=== PATIENT | male | born 1930 | race Caucasian/White ===

== ENCOUNTER 2017-08-09 10:27 | Emergency (ER) | payer OTHER ==
[~2017-08-09] VITALS: Ht 175.3 cm; Wt 76.8 kg
[~2017-08-09 10:27] MED LIST: ASPIRIN325 MG PO; BICALUTAMIDE50 M1 PO; COLACE100 MG PO; PRILOSEC20 MG PO; QUINAPRIL HCL20 MG PO; ZETIA10 MG PO; [UNRECOGNIZED DRUG - REMARK] SC
[2017-08-09 11:33] LABS: BASOPHIL (%) 0.6 % (0-1); EOSINOPHIL (%) 2.3 % (0-5); EOSINOPHIL COUNT 0.1 K/uL (0-0.3); HEMATOCRIT 37.4 % (38.0-50.0); HEMOGLOBIN 12.6 G/DL (12.5-16.6); IMMATURE GRANULOCYTE (%) 0.2 % (0.0-0.7); LYMPHOCYTE (%) 28.4 % (15-42); LYMPHOCYTE COUNT 1.4 K/uL (1.0-2.8); MCHC 33.7 G/DL (30.0-36.0); MCV 94.9 FL (86-99); MONOCYTE (%) 10.7 % (3-12); MONOCYTE COUNT 0.5 K/uL (0-0.8); NEUTROPHIL (%) 57.8 % (45-76); NEUTROPHIL COUNT 2.8 K/uL (1.8-6.4); PLATELET COUNT 168 K/uL (156-360); RBC DIS.WIDTH-SD 48.4 % (39-53); RED BLOOD COUNT 3.94 M/uL (4.00-5.50); WHITE BLOOD COUNT 4.8 K/uL (4.1-10.2)
[2017-08-09 11:42] LABS: ALBUMIN 3.8 g/dL (3.2-4.8); CHLORIDE 110 mEq/L (99-109); POTASSIUM 4.1 mEq/L (3.7-5.4); SODIUM 144 mEq/L (136-147)
[2017-08-09 11:44] LABS: GLUCOSE 105 mg/dL (70-99); TOTAL PROTEIN 6.5 g/dL (6.4-8.3)
[2017-08-09 11:46] LABS: TOTAL BILIRUBIN 0.7 mg/dL (0.0-1.0)
[2017-08-09 11:48] LABS: ALKALINE PHOSPHATASE 61 IU/L (3-129); GFR ESTIMATE (CALCULATED) > 59 mL/min/ (58.99-99999)
[2017-08-09 11:49] LABS: UREA NITROGEN (BUN) 20 mg/dL (9-23)
[2017-08-09 11:50] LABS: AST (GOT) 27 IU/L (2-34)
[2017-08-09 11:51] LABS: ALT (GPT) 26 IU/L (3-49)
[2017-08-09 13:18] LABS: APPEARANCE CLEAR ((CLEAR)); BILIRUBIN NEGATIVE; BLOOD NEGATIVE; COLOR YELLOW ((YELLOW)); GLUCOSE (STRIP) NEGATIVE; KETONES NEGATIVE; LEUKOCYTES NEGATIVE; NITRITE NEGATIVE; PROTEIN (STRIP) NEGATIVE; SPECIFIC GRAVITY 1.023 (1.000-1.030); UCUL ADDED? NO; UROBILINOGEN 0.2 MG/DL (0.2-1.0)
[2017-08-09] MEDS ORDERED: URIBEL CAPSULE1 EACH PO (14:03)
[2017-08-09] MEDS ORDERED: NORCO 5/3251 TABLET PO (14:03)
[2017-08-09 14:37] VITALS: BP 152/84
== END 2017-08-09 14:37 | disposition home or self-care (01) ==
LOC: EME 10:27
PROVIDERS: Emergency Medicine
DX: R30.0 Dysuria (principal); N32.89 Other specified disorders of bladder; I10 Essential (primary) hypertension; K21.9 Gastro-esophageal reflux disease without esophagitis; I25.2 Old myocardial infarction; Z95.5 Presence of coronary angioplasty implant and graft; Z95.1 Presence of aortocoronary bypass graft; Z85.46 Personal history of malignant neoplasm of prostate; Z87.891 Personal history of nicotine dependence; Z79.82 Long term (current) use of aspirin; Z88.7 Allergy status to serum and vaccine; Z88.8 Allergy status to other drugs, medicaments and biological substances; Z91.040 Latex allergy status
CPT/HCPCS: 74177; 80053; 81003; 83880; 85025; 99281; 99284

== ENCOUNTER 2017-08-28 19:53 | Emergency (ER) | payer OTHER ==
[~2017-08-28] VITALS: Ht 175.3 cm; Wt 75.3 kg
[~2017-08-28 19:53] MED LIST changes: +NORCO 5/3251 TABLET PO; +URIBEL CAPSULE1 EACH PO
[2017-08-28 20:44] LABS: APPEARANCE SL.HAZY ((CLEAR)); BILIRUBIN NEGATIVE; BLOOD MODERATE; COLOR YELLOW ((YELLOW)); GLUCOSE (STRIP) NEGATIVE; KETONES NEGATIVE; LEUKOCYTES TRACE; NITRITE NEGATIVE; PROTEIN (STRIP) 30; SPECIFIC GRAVITY 1.014 (1.000-1.030); UROBILINOGEN 0.2 MG/DL (0.2-1.0)
[2017-08-28 20:44] LABS: HEMATOCRIT 37.5 % (38.0-50.0); HEMOGLOBIN 13.2 G/DL (12.5-16.6); MCH 32.8 PG (29.0-34.0); MCHC 35.2 G/DL (30.0-36.0); MCV 93.1 FL (86-99); PLATELET COUNT 192 K/uL (156-360); RBC DIS.WIDTH-CV 13.2 % (11.8-14.6); RBC DIS.WIDTH-SD 45.6 % (39-53); RED BLOOD COUNT 4.03 M/uL (4.00-5.50); WHITE BLOOD COUNT 5.9 K/uL (4.1-10.2)
[2017-08-28 21:04] LABS: BACTERIA RARE /HPF; EPITHELIAL CELLS RARE /HPF; MUCUS TRACE /LPF; RED BLOOD CELLS 20-30 /HPF (0-5)
[2017-08-28 21:13] LABS: CHLORIDE 108 mEq/L (99-109); SODIUM 139 mEq/L (136-147)
[2017-08-28 21:14] LABS: GLUCOSE 103 mg/dL (70-99)
[2017-08-28 21:18] LABS: CREATININE 1.2 mg/dL (0.6-1.3); GFR ESTIMATE (CALCULATED) > 59 mL/min/ (58.99-99999)
[2017-08-28 21:19] LABS: UREA NITROGEN (BUN) 30 mg/dL (9-23)
[2017-08-28] MEDS ORDERED: CIPRO500 MG PO (21:55)
[2017-08-28 22:30] VITALS: BP 101/70
[2017-08-31] MEDS ORDERED: ADULT ASPIRIN R81 MG PO (17:45)
[2017-08-31] MEDS ORDERED: NEXIUM40 MG PO (17:47)
[2017-08-31] MEDS ORDERED: LISINOPRIL5 MG PO (17:47)
== END 2017-08-28 22:35 | disposition home or self-care (01) ==
LOC: EME → EDBD 19:53 → EME 19:53
PROVIDERS: Emergency Medicine
PROC: 0T9B70Z Drainage of Bladder with Drainage Device, Via Natural or Artificial Opening (ICD-10-PCS; principal; 2017-08-28)
DX: N39.0 Urinary tract infection, site not specified (principal); R33.9 Retention of urine, unspecified; I10 Essential (primary) hypertension; K21.9 Gastro-esophageal reflux disease without esophagitis; Z85.46 Personal history of malignant neoplasm of prostate; I25.2 Old myocardial infarction; Z95.5 Presence of coronary angioplasty implant and graft; Z95.1 Presence of aortocoronary bypass graft; Z87.891 Personal history of nicotine dependence; Z79.82 Long term (current) use of aspirin
CPT/HCPCS: 80048; 81003; 85027; 87086; 99281; 99284

== ENCOUNTER 2017-08-31 19:33 | Emergency (ER) | payer OTHER ==
[~2017-08-31] VITALS: Ht 175.3 cm; Wt 75.9 kg
[~2017-08-31 19:33] MED LIST changes: +ADULT ASPIRIN R81 MG PO; +CIPRO500 MG PO; +LISINOPRIL5 MG PO; +NEXIUM40 MG PO
[2017-08-31] MEDS ORDERED: PYRIDIUM100 MG PO (20:35)
[2017-08-31 21:08] VITALS: BP 155/100
== END 2017-08-31 21:08 | disposition home or self-care (01) ==
LOC: EME 19:33
PROC: 0T9B70Z Drainage of Bladder with Drainage Device, Via Natural or Artificial Opening (ICD-10-PCS; principal; 2017-08-31)
DX: R33.9 Retention of urine, unspecified (principal); Z85.51 Personal history of malignant neoplasm of bladder; Z85.46 Personal history of malignant neoplasm of prostate; I10 Essential (primary) hypertension; I25.2 Old myocardial infarction; K21.9 Gastro-esophageal reflux disease without esophagitis; Z95.1 Presence of aortocoronary bypass graft; Z95.5 Presence of coronary angioplasty implant and graft; Z79.82 Long term (current) use of aspirin; Z87.891 Personal history of nicotine dependence
CPT/HCPCS: 99281; 99284

== ENCOUNTER 2017-11-15 20:54 | Emergency (ER) | payer OTHER ==
[~2017-11-15] VITALS: Ht 180.3 cm; Wt 77.2 kg
[~2017-11-15 20:54] MED LIST changes: +PYRIDIUM100 MG PO
[2017-11-15 21:38] LABS: APPEARANCE CLEAR ((CLEAR)); BILIRUBIN NEGATIVE; BLOOD MODERATE; COLOR YELLOW ((YELLOW)); GLUCOSE (STRIP) NEGATIVE; KETONES NEGATIVE; LEUKOCYTES MODERATE; NITRITE NEGATIVE; PROTEIN (STRIP) 30; SPECIFIC GRAVITY 1.012 (1.000-1.030); UROBILINOGEN 0.2 MG/DL (0.2-1.0)
[2017-11-15 21:47] LABS: BACTERIA RARE /HPF; EPITHELIAL CELLS NONE SEEN /HPF; HYALINE CASTS 0-5 /LPF; MUCUS TRACE /LPF; RED BLOOD CELLS TNTC /HPF (0-5); UCUL ADDED? YES; WHITE BLOOD CELLS 40-50 /HPF (0-5)
[2017-11-15 21:55] LABS: BASOPHIL (%) 0.5 % (0-1); BASOPHIL COUNT 0.1 K/uL (0-0.1); EOSINOPHIL COUNT 0.2 K/uL (0-0.3); HEMATOCRIT 39.9 % (38.0-50.0); HEMOGLOBIN 13.6 G/DL (12.5-16.6); IMMATURE GRANULOCYTE (%) 0.7 % (0.0-0.7); LYMPHOCYTE (%) 11.6 % (15-42); LYMPHOCYTE COUNT 1.2 K/uL (1.0-2.8); MCH 32.7 PG (29.0-34.0); MCHC 34.1 G/DL (30.0-36.0); MCV 95.9 FL (86-99); MONOCYTE COUNT 0.8 K/uL (0-0.8); NEUTROPHIL (%) 77.2 % (45-76); PLATELET COUNT 183 K/uL (156-360); RBC DIS.WIDTH-CV 12.5 % (11.8-14.6); RBC DIS.WIDTH-SD 43.9 % (39-53); RED BLOOD COUNT 4.16 M/uL (4.00-5.50); WHITE BLOOD COUNT 10.4 K/uL (4.1-10.2)
[2017-11-15 22:04] LABS: CHLORIDE 108 mEq/L (99-109); POTASSIUM 4.2 mEq/L (3.7-5.4); SODIUM 138 mEq/L (136-147)
[2017-11-15 22:05] LABS: GLUCOSE 122 mg/dL (70-99)
[2017-11-15 22:09] LABS: CREATININE 1.2 mg/dL (0.6-1.3); GFR ESTIMATE (CALCULATED) > 59 mL/min/ (58.99-99999)
[2017-11-15 22:10] LABS: UREA NITROGEN (BUN) 37 mg/dL (9-23)
[2017-11-16] MEDS ORDERED: KEFLEX500 MG PO (00:12)
[2017-11-16] MEDS ORDERED: PYRIDIUM100 MG PO ×2 (00:12→00:33)
[2017-11-16 01:05] VITALS: BP 109/77
== END 2017-11-16 01:06 | disposition home or self-care (01) ==
LOC: EME 20:54
PROVIDERS: Emergency Medicine
PROC: 0T9B70Z Drainage of Bladder with Drainage Device, Via Natural or Artificial Opening (ICD-10-PCS; principal; 2017-11-15)
DX: N39.0 Urinary tract infection, site not specified (principal); I10 Essential (primary) hypertension; K21.9 Gastro-esophageal reflux disease without esophagitis; I25.2 Old myocardial infarction; Z79.82 Long term (current) use of aspirin; Z85.46 Personal history of malignant neoplasm of prostate; Z87.891 Personal history of nicotine dependence; Z95.5 Presence of coronary angioplasty implant and graft; Z95.1 Presence of aortocoronary bypass graft
CPT/HCPCS: 80048; 81003; 85025; 87086; 99281; 99284